=== PATIENT | male | born 1980 | race Caucasian/White ===

== ENCOUNTER 2016-08-23 16:23 | Emergency (ER) | payer SELFPAY ==
[2016-08-23 16:27] VITALS: BP 172/119
== END 2016-08-23 17:55 | disposition home or self-care (01) ==
LOC: ED 16:23
DX: R19.7 Diarrhea, unspecified (principal); R11.10 Vomiting, unspecified; I10 Essential (primary) hypertension; E11.9 Type 2 diabetes mellitus without complications

== ENCOUNTER 2019-09-25 16:43 | Emergency (ER) | payer MEDICAID ==
[~2019-09-25] VITALS: Ht 172.7 cm; Wt 111.1 kg
[2019-09-25 17:10] VITALS: Ht 172.7 cm; Wt 111.1 kg
[2019-09-25 18:51] VITALS: BP 155/89
== END 2019-09-25 18:51 | disposition home or self-care (01) ==
LOC: ED 16:43
DX: S51.012D Laceration without foreign body of left elbow, subsequent encounter (principal); S51.812D Laceration without foreign body of left forearm, subsequent encounter; I10 Essential (primary) hypertension; E11.9 Type 2 diabetes mellitus without complications; W54.0XXD Bitten by dog, subsequent encounter
CPT/HCPCS: J1885